=== PATIENT | female | born 1995 | race Two or more races ===

== ENCOUNTER 2021-04-26 08:13 | Emergency (ER) | payer OTHER ==
[~2021-04-26] VITALS: Ht 167.6 cm; Wt 77.1 kg
[2021-04-26 08:16] VITALS: BP 187/91
== END 2021-04-26 11:08 | disposition left against medical advice (07) ==
LOC: ER 08:13
DX: U07.1 COVID-19 (principal); R50.9 Fever, unspecified; R51.9 Headache, unspecified; M79.10 Myalgia, unspecified site; R11.0 Nausea; Z53.21 Procedure and treatment not carried out due to patient leaving prior to being seen by health care provider
CPT/HCPCS: 36415; 87426